=== PATIENT | male | born 1985 | race Caucasian/White ===

== ENCOUNTER 2016-08-16 18:57 | Emergency (ER) | payer OTHER ==
[2016-08-16] MEDS ORDERED: ONDANSETRON 4 MG/2 ML VIAL ONE (19:20)
[2016-08-16] MEDS ORDERED: ONDANSETRON DISINTEGRATING 4 MG TAB PO ONE (19:31)
[2016-08-16] MEDS ORDERED: NS 1,000 ML IV ONE (19:46)
--- NOTE | 2016-08-16 19:51 | EDPHY ---
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 Today he and his friends drove up to [place] to go on 18 mile run. At about 8 miles he began feeling nauseous and decided to turn around. He waited for his friends he finished the run who brought him home. At home he ate breakfast and took a shower and was lying in bed when he began having chills. He continue to feel nauseous but did not vomit. His took his temperature and it was 104. She brought him to the emergency department and here he is afebrile but he was drinking water. In the room it is 38.0. He denies recent sore throat, cough, sinus congestion and cetera. His nausea is now resolved after Zofran by triage protocol. He does have mild leg pain but is not sure if it is abnormal. REVIEW OF SYSTEMS: Constitutional: See HPI EENTM: denies: blurred vision, double vision, nose congestion Respiratory: denies: cough, shortness of breath Cardiac: denies: chest pain, irregular heart rate, lightheadedness, palpitations Gastrointestinal/Abdominal: See HPI denies: abdominal pain, diarrhea, vomiting , blood streaked stools Genitourinary: denies: dysuria, frequency, hematuria, pain Musculoskeletal: denies: joint pain, muscle pain Skin: denies: lesions, rash, jaundice, bruising Neurological: denies: headache, numbness, paresthesia, tingling, dizziness, weakness Hematologic/Lymphatic: denies: blood clots, easy bleeding, easy bruising Immunologic/allergic: denies: HIV/AIDS, transplant EXAM: GENERAL: Well-appearing, well-nourished and in no acute distress. HEAD: Atraumatic, normocephalic. EYES: Pupils equal round and reactive to light, extraocular movements intact, sclera anicteric, conjunctiva are normal. ENT: TMs normal, nares patent, oropharynx clear without exudates. Moist mucous membranes. NECK: Normal range of motion, supple without lymphadenopathy or JVD. LUNGS: Breath sounds clear to auscultation bilaterally and equal. No wheezes rales or rhonchi. HEART: Regular rate and rhythm without murmurs, rubs or gallops. ABDOMEN: Soft, nontender, normoactive bowel sounds. No guarding, no rebound. No masses appreciated. BACK: No CVA tenderness, no spinal tenderness, step-offs or deformities EXTREMITIES: Normal range of motion, no pitting or edema. No clubbing or cyanosis. NEUROLOGICAL: Cranial nerves II through XII grossly intact. Normal speech, normal gait. 5/5 strength, normal movement in all extremities, normal sensation PSYCH: Normal mood, normal affect. SKIN: Warm, dry, normal turgor, no visible rashes or lesions. Source: Patient Exam Limitations: No limitations - Medical/Surgical History Hx Asthma: No Hx Chronic Respiratory Disease: No Hx Diabetes: No Hx Cardiac Disease: No Hx Renal Disease: No Hx Cirrhosis: No Hx Alcoholism: No Hx HIV/AIDS: No Hx Splenectomy or Spleen Trauma: No Other PMH: no Hx - Family History Significant Family History: Cancer - Social History Smoking Status: Never smoked Alcohol Use: Sober Drug Use: None Constitutional: Initial Vital Signs Temperature (C) 37.6 C 08/16/16 19:01 Heart Rate 103 H 08/16/16 19:01 Respiratory Rate 16 08/16/16 19:01 Blood Pressure 137/87 H 08/16/16 19:01 O2 Sat (%) 96 08/16/16 19:01 O2 Delivery Mode Room Air Allergies/Adverse Reactions: No Known Allergies Allergy (Unverified 10/27/14 18:35) Home Medications: Medication Instructions Recorded NK [No Known Home Meds] 10/27/14 Medical Decision Making ED Course/Re-evaluation: 9:55 p.m. I spoke with the patient. He is feeling much better. He is afebrile. His lab work is reassuring we discussed hydration and rest. The he may be at the beginning of a viral illness. We discussed indications for returning. He declines further workup and is eager to go home at this time. Differential Diagnosis: Partial list of the Differential diagnosis considered include but were not limited to; mono, flu, fever, heat stroke, rhabdomyolysis and although unlikely based on the history and physical exam, I also considered renal insufficiency, endocarditis. I discussed these differential diagnoses and the plan with the patient as well as the usual and expected course. The patient understands that the diagnosis is provisional and that in medicine we are not always correct and that further workup is often warranted. Usual and customary warnings were given. All of the patient's questions were answered. The patient was instructed to return to the emergency department should the symptoms at all worsen or return, otherwise to followup with the physician as we discussed. - Data Points Laboratory Results: Laboratory Results 08/16/16 19:25 08/16/16 19:25 Medications Given: Discontinued Medications Acetaminophen (Tylenol) 1,000 mg PO EDNOW ONE Stop: 08/16/16 20:37 Last Admin: 08/16/16 20:37 Dose: 1,000 mg Sodium Chloride (Ns) 1,000 mls @ 0 mls/hr IV ONCE ONE; Wide Open PRN Reason: Protocol Stop: 08/16/16 19:47 Last Admin: 08/16/16 19:48 Dose: 1,000 mls Ondansetron HCl (Zofran Odt) 4 mg PO EDNOW ONE Stop: 08/16/16 19:32 Last Admin: 08/16/16 19:40 Dose: 4 mg Departure - Departure Disposition: Home, Routine, Self-Care Clinical Impression: Nausea Fever Qualifiers: Fever type: unspecified Qualified Code(s): R50.9 - Fever, unspecified Condition: Fair Instructions: Ondansetron (By mouth), Fever in Adults (ED) Referrals: UNKNOWN,DOCTOR [Other] - As per Instructions Milana Devries MD [[facility] [place] Primary Care Provider] - As per Instructions
[2016-08-16 19:53] LABS: % IMMATURE GRANULYOCYTES 0.2 % (0.0-1.1); ABSOLUTE IMMATURE GRANULOCYTES 0.02 10^3/uL (0.00-0.10); ADD DIFF? NO; ADD MORPH? NO; ADD SCAN? NO; ATYPICAL LYMPHOCYTE FLAG 0 (0-99); FRAGMENT RBC FLAG 0 (0-99); HEMATOCRIT 46.9 % (40.0-51.0); HEMOGLOBIN 16.4 g/dL (13.7-17.5); LEFT SHIFT FLG 0 (0-99); LIPEMIA HEMOLYSIS FLAG 90 (0-99); MEAN CELL HEMOGLOBIN 29.8 pg (27.9-34.1); MEAN CELL VOLUME 85.3 fL (81.5-99.8); MEAN PLATELET VOLUME 10.5 fL (8.7-11.7); PLATELET CLUMPS FLAG 30 (0-99); PLATELET COUNT 173 10^3/uL (150-400); RED CELL DISTRIBUTION WIDTH 12.6 % (11.5-15.2)
[2016-08-16 19:58] LABS: ANION GAP 16 mEq/L (8-16); CALCIUM 9.9 mg/dL (8.5-10.4); CARBON DIOXIDE 21 mEq/l (22-31); CHLORIDE 106 mEq/L (97-110); CREATININE 1.2 mg/dL (0.7-1.3); GLOMERULAR FILTRATION RATE > 60; GLUCOSE 95 mg/dL (70-100); SODIUM 143 mEq/L (134-144)
[2016-08-16] MEDS ORDERED: ACETAMINOPHEN 500 MG TAB ONE (20:34)
[2016-08-16] MEDS ORDERED: ACETAMINOPHEN 500 MG TAB PO ONE (20:36)
[2016-08-16] MEDS ORDERED: ONDANSETRON 4MG PREPACK#2 BTL TAKEHOME ONE (21:57)
[2016-08-16 21:58] VITALS: BP 113/57
[2016-08-16 22:09] VITALS: PULSE 75; RESP 18; TEMP 99.5; O2SAT 94
== END 2016-08-16 22:08 | disposition home or self-care (01) ==
DX: R11.0 Nausea (principal); R50.9 Fever, unspecified; E86.9 Volume depletion, unspecified
CPT/HCPCS: J2405